=== PATIENT | female | born 1995 | race Caucasian/White ===

== ENCOUNTER 2016-06-20 14:03 | Emergency (ER) | payer OTHER ==
[2016-06-20] MEDS ORDERED: PREDNISONE 20 MG TABLET PO ONE (14:38)
[2016-06-20 15:25] LABS: APPEARANCE,URINE CLOUDY; BILIRUBIN,URINE NEGATIVE (NEGATIVE); GLUCOSE, URINE NEGATIVE (NEGATIVE); KETONES,URINE NEGATIVE (NEGATIVE); LEUKOCYTE ESTERASE,URINE NEGATIVE (NEGATIVE); NITRITE,URINE NEGATIVE (NEGATIVE); PROTEIN,URINE NEGATIVE (NEGATIVE); URINE SPECIFIC GRAVITY 1.026; UROBILINOGEN,URINE NEGATIVE mg/dL (<2.0)
--- NOTE | 2016-06-20 17:01 | ER Document Report ---
ED General - General Chief Complaint: Back Pain Stated Complaint: BACK PAIN Time seen by provider: 15:00 Mode of Arrival: Ambulatory Information source: Patient Notes: This is a 20-year-old female that presents to the emergency room with acute onset low back pain after bending over picking up a baby. The patient did hear a "pop". She denies any numbness to the lower extremities. She has a lot of pain in the low back region. There is no radicular symptoms. There is no loss of bowel or bladder function. TRAVEL OUTSIDE OF THE [place] IN LAST 30 DAYS: No - HPI Onset: This morning Onset/Duration: Sudden Quality of pain: Dull Severity: Moderate Pain Level: 3 Associated symptoms: denies: Chills, Nonproductive cough, Productive cough, Fever, Shortness of breath Exacerbated by: Denies Relieved by: Denies Similar symptoms previously: No Recently seen / treated by doctor: No - Related Data Allergies/Adverse Reactions: cephalexin [From Keflex] Allergy (Verified 06/20/16 14:56) amoxicillin Adverse Reaction (Verified 06/20/16 14:56) Past Medical History - General Information source: Patient - Social History Smoking Status: Never Smoker Cigarette use (# per day): No Chew tobacco use (# tins/day): No Frequency of alcohol use: None Drug Abuse: None Lives with: Family Family History: Reviewed & Not Pertinent Patient has suicidal ideation: No Patient has homicidal ideation: No - Medical History Medical History: Negative Surgical Hx: Negative - Immunizations Hx Diphtheria, Pertussis, Tetanus Vaccination: Yes Review of Systems - Review of Systems Constitutional: denies: See HPI, Fever EENT: No symptoms reported Cardiovascular: No symptoms reported Respiratory: No symptoms reported Gastrointestinal: No symptoms reported Genitourinary: No symptoms reported Female Genitourinary: No symptoms reported Musculoskeletal: See HPI Skin: No symptoms reported Hematologic/Lymphatic: No symptoms reported Neurological/Psychological: No symptoms reported Physical Exam - Vital signs Vitals: Temp Pulse Resp BP Pulse Ox 98.1 F 95 20 148/65 H 100 06/20/16 17:21 06/20/16 17:21 06/20/16 17:21 06/20/16 17:21 06/20/16 17:21 Notes: Physical exam: GENERAL: 20-year-old female, alert and oriented 3, no acute distress. HEAD: Atraumatic, normocephalic. EYES: Pupils equal round and reactive to light, extraocular movements intact, sclera anicteric, conjunctiva are normal. ENT: TMs normal, nares patent, oropharynx clear without exudates. Moist mucous membranes. NECK: Normal range of motion, supple without lymphadenopathy or JVD. LUNGS: Breath sounds clear to auscultation bilaterally and equal. No wheezes rales or rhonchi. HEART: Regular rate and rhythm without murmurs, rubs or gallops. ABDOMEN: Soft, nontender, normoactive bowel sounds. No guarding, no rebound. No masses appreciated. BACK: Cervical, thoracic and lumbar spine nontender. Patient does have a lot of paraspinal tenderness in the lumbar region. There is no step offs, swelling , skin changes. EXTREMITIES: Normal range of motion, no pitting or edema. No clubbing or cyanosis. NEUROLOGICAL: Cranial nerves II through XII grossly intact. Normal speech, normal gait, motor exam good, reflexes symmetrical, sensory intact. PSYCH: Normal mood, normal affect. SKIN: Warm, Dry, normal turgor, no rashes or lesions noted. Course - Vital Signs Vital signs: Temp Pulse Resp BP Pulse Ox 98.1 F 95 20 148/65 H 100 06/20/16 17:21 06/20/16 17:21 06/20/16 17:21 06/20/16 17:21 06/20/16 17:21 - Laboratory Laboratory results interpreted by me: 06/20/16 14:39 Urine Ascorbic Acid 40 H - Diagnostic Test Radiology reviewed: Image reviewed, Reports reviewed - LS-spine films show no fractures or misalignment Discharge - Discharge Clinical Impression: acute lumbar strain Condition: Stable Disposition: HOME, SELF-CARE Instructions: Low Back Pain ([facility]), Muscle Strain ([facility]), Oral Narcotic Medication ([facility]), Warm Packs ([facility]) Additional Instructions: Recommendations: Avoid heavy lifting. Take Solu-Medrol as prescribed. Start the steroids tomorrow you were given today's dose in the ER. Take the Percocet as needed. This is a narcotic: See the narcotic instruction sheet. Take Robaxin as needed. This is a muscle relaxer. Try heat to the lower back area. Follow-up with your primary care doctor Physical therapy can sometimes help with back pain. I left the number for a physical therapist below: [facility] physical therapist [address] [place] [address] There are also certain exercises that can help with low back pain. There is a disc that you can buy over the Internet called "foundation training" by Axel Covington. It shows you maneuvers and exercises you could do to strengthen you lower back. Prescriptions: Methocarbamol [Robaxin 500 mg Tablet] 500 mg PO BID #20 tablet Methylprednisolone [Medrol 4 mg Dosepack 21 Tab/Pack] 4 mg PO ASDIR PRN #21 tab.ds.pk PRN Reason: Oxycodone HCl/Acetaminophen [Percocet 5-325 mg Tablet] 1 - 2 tab PO ASDIR PRN # 25 tablet PRN Reason:
[2016-06-20 17:22] VITALS: BP 148/65
== END 2016-06-20 17:22 | disposition home or self-care (01) ==
LOC: ER 14:03
DX: S39.012A Strain of muscle, fascia and tendon of lower back, initial encounter (principal); X50.0XXA Overexertion from strenuous movement or load, initial encounter; Z88.0 Allergy status to penicillin
CPT/HCPCS: 99283; 81025; 81001; 72110; J7512

== ENCOUNTER → 2017-07-26 | Outpatient (CLI) | payer OTHER ==
[2017-07-28 08:43] LABS: FOLLICLE STIMULATING HORMONE 5.7 mIU/mL (.); LUTEINIZING HORMONE 15.8 mIU/mL (.)
== END ==
LOC: OD 08:10
PROVIDERS: ATTEND Obstetrics & Gynecology
DX: N92.6 Irregular menstruation, unspecified (principal); N97.0 Female infertility associated with anovulation; E66.9 Obesity, unspecified
CPT/HCPCS: 36415; 83001; 83002; 84146; 84443

== ENCOUNTER → 2017-08-14 | Outpatient (CLI) | payer OTHER ==
--- NOTE | 2017-08-14 09:40 | WOMENS IMAGING REPORT ---
EXAM DESCRIPTION: U/S ABDOMEN LIMITED COMPLETED DATE/TIME: 08/14/2017 9:09 am REASON FOR STUDY: NAUSEA R11.0 NAUSEA COMPARISON: None. TECHNIQUE: Dynamic and static grayscale images acquired of the abdomen and recorded on PACS. [facility] and spectral images recorded. LIMITATIONS: Study is limited somewhat due to overlying bowel gas. FINDINGS: PANCREAS: No masses. No peripancreatic edema or fluid collections. LIVER: Echotexture is coarse with increased echogenicity consistent with fatty infiltration. Echogen ic mass is identified measuring 2.4 x 2.3 x 2.4 cm in diameters most consistent with an hemangioma. If further workup is deemed clinically warranted I would recommend CT or MRI. LIVER VASCULATURE: Normal directional flow of the main portal vein and hepatic veins. GALLBLADDER: No stones. Normal wall thickness. No pericholecystic fluid. ULTRASOUND-DETECTED RATLIFF'S SIGN: Negative. INTRAHEPATIC DUCTS AND COMMON DUCT: CBD and intrahepatic ducts normal caliber. No filling defects. INFERIOR VENA CAVA: IVC could not be visualized due to overlying bowel gas. AORTA: Abdominal aorta could not be visualized due to overlying bowel gas. RIGHT KIDNEY: Normal size. Normal echogenicity. No solid or suspicious masses. No hydronephrosis. No calcifications. PERITONEAL AND RIGHT PLEURAL SPACE: No ascites or effusions. OTHER: No other significant finding. IMPRESSION: FATTY INFILTRATION OF THE LIVER. Echogenic mass in the liver most consistent with an he mangioma. If further workup is deemed clinically warranted I would recommend CT or MRI. No other si gnificant intra-abdominal abnormalities were identified. Other findings as noted above TECHNICAL DOCUMENTATION: JOB ID: [id number] [employer]- All Rights Reserved Reading location - IP/workstation name: [facility]
== END ==
LOC: WI 07:42
PROVIDERS: ATTEND Obstetrics & Gynecology
DX: R11.0 Nausea (principal); L29.9 Pruritus, unspecified; D18.03 Hemangioma of intra-abdominal structures; K76.0 Fatty (change of) liver, not elsewhere classified
CPT/HCPCS: 76705

== ENCOUNTER → 2017-09-09 | Outpatient (CLI) | payer OTHER ==
[2017-09-09 15:40] LABS: ABSOLUTE BASOPHILS # (AUTO) 0.1 10^3/uL (0.0-0.2); ABSOLUTE EOSINOPHILS # (AUTO) 0.1 10^3/uL (0.0-0.6); ABSOLUTE LYMPHOCYTES (AUTO) 2.2 10^3/uL (0.5-4.7); ABSOLUTE MONOCYTES (AUTO) 0.6 10^3/uL (0.1-1.4); ABSOLUTE NEUT (AUTO) 6.4 10^3/uL (1.7-8.2); BASOPHILS % (AUTO) 0.6 % (0-2); EOSINOPHILS % (AUTO) 0.6 % (0-6); HEMATOCRIT 40.7 % (36.0-47.0); HEMOGLOBIN 13.5 g/dL (12.0-15.5); LYMPHOCYTES % (AUTO) 23.8 % (13-45); MEAN CORPUSCULAR HEMOGLOBIN 24.8 pg (27.0-33.4); MEAN CORPUSCULAR HGB CONC 33.3 g/dL (32.0-36.0); MEAN CORPUSCULAR VOLUME 75 fl (80-97); MONOCYTES % (AUTO) 6.1 % (3-13); PLATELET COUNT 374 10^3/uL (150-450); RED BLOOD COUNT 5.46 10^6/uL (3.72-5.28); RED CELL DISTRIBUTION WIDTH 15.3 % (11.5-14.0); SEGMENTED NEUTROPHILS % (AUTO) 68.9 % (42-78); TOTAL CELLS COUNTED % (AUTO) 100 %; WHITE BLOOD COUNT 9.3 10^3/uL (4.0-10.5)
[2017-09-09 15:45] LABS: ALANINE AMINOTRANSFERASE 20 U/L (9-52); ALBUMIN 4.5 g/dL (3.5-5.0); ALKALINE PHOSPHATASE 86 U/L (38-126); ANION GAP 12 (5-19); ASPARTATE AMINO TRANSFERASE 18 U/L (14-36); BILIRUBIN,DIRECT 0.2 mg/dL (0.0-0.4); BILIRUBIN,TOTAL 0.4 mg/dL (0.2-1.3); BLOOD UREA NITROGEN 9 mg/dL (7-20); CALCIUM 9.9 mg/dL (8.4-10.2); CARBON DIOXIDE 25 mmol/L (22-30); CHLORIDE 103 mmol/L (98-107); GLUCOSE 87 mg/dL (75-110); POTASSIUM 4.3 mmol/L (3.6-5.0); SODIUM 139.7 mmol/L (137-145); TOTAL PROTEIN 7.6 g/dL (6.3-8.2)
== END ==
LOC: OD 14:52
PROVIDERS: ATTEND Physician Assistant Surgical
DX: R10.11 Right upper quadrant pain (principal); R11.0 Nausea; K76.89 Other specified diseases of liver
CPT/HCPCS: 36415; 80053; 85025

== ENCOUNTER → 2017-09-11 | Outpatient (CLI) | payer OTHER ==
--- NOTE | 2017-09-11 20:43 | RADIOLOGY REPORT (SQ) ---
EXAM DESCRIPTION: MRI ABDOMEN COMBO COMPLETED DATE/TIME: 09/11/2017 7:58 pm REASON FOR STUDY: Other specified diseases of liver K76.89 OTHER SPECIFIED DISEASES OF LIVER COMPARISON: Ultrasound 08/14/2017. TECHNIQUE: T1, T1 in and out of phase, T2 fat sat, T1 post gadolinium sequences with attention to th e liver. CONTRAST TYPE AND DOSE: 20 mL Prohance. RENAL FUNCTION: None required. The patient is less than 50 years old. LIMITATIONS: None. FINDINGS: LIVER: There are hyperintense T2 small liver lesions. This includes the right lobe lesion noted on ultrasound which measures 1.6 x 2.3 cm. Similar 9 mm right lobe lesion and 1.2 cm ovoid le nery near the pearl. Each of these lesions shows nodular irregular peripheral enhancement with incom plete fill-in over the course of the study. The appearance is suggestive of hemangiomas. SPLEEN: Normal size. No focal lesions. PANCREAS: No masses. No adjacent inflammation or peripancreatic fluid collections. Pancreatic duct no t dilated. GALLBLADDER: Contracted. ADRENAL GLANDS: No significant masses or asymmetry. RIGHT KIDNEY AND URETER: No masses. No hydronephrosis. LEFT KIDNEY AND URETER: No masses. No hydronephrosis. AORTA AND VESSELS: No aneurysm. No dissection. Renal arteries, SMA, celiac without stenosis. RETROPERITONEUM: No retroperitoneal adenopathy, hemorrhage or masses. BOWEL: No visualized masses. No inflammation. No significant dilatation. ABDOMINAL WALL AND PERITONEUM: No hernias. No free fluid. BONES: No acute or significant findings. OTHER: No other significant finding. IMPRESSION: 1. 3 liver hemangiomas, largest correlating with the recently ultrasound detected lesio n. No suspicious lesion. TECHNICAL DOCUMENTATION: JOB ID: [id number] [employer]- All Rights Reserved Reading location - IP/workstation name: [email or web address]
== END ==
LOC: RAD 17:52
PROVIDERS: ATTEND Internal Medicine Gastroenterology
DX: K76.89 Other specified diseases of liver (principal)
CPT/HCPCS: 74183

== ENCOUNTER 2017-11-15 14:06 | Inpatient (IN) | payer OTHER ==
[2017-11-15] MEDS ORDERED: CLINDAMYCIN 600 MG/D5W RTU 600 MG/50 ML RTUPB IV ONE (14:38)
[2017-11-15] MEDS ORDERED: NORMAL SALINE 1000 ML 1,000 ML IV ONE (14:38)
--- NOTE | 2017-11-15 14:39 | ER Document Report ---
ED Medical Screen (RME) - General Chief Complaint: Sore Throat Stated Complaint: SORE THROAT Time Seen by Provider: 11/15/17 14:34 Mode of Arrival: Ambulatory Information source: Patient Notes: 22-year-old female presents with 3 day duration of tonsillar pain change of voice difficulty swallowing. Patient sent in by urgent care for concerns for BEEF BREAKER versus Adis's I have greeted and performed a rapid initial assessment of this patient. A comprehensive ED assessment and evaluation of the patient, analysis of test results and completion of the medical decision making process will be conducted by additional ED providers. PHYSICAL EXAMINATION: GENERAL: Well-appearing, well-nourished and in no acute distress. HEAD: Atraumatic, normocephalic. EYES: Pupils equal round extraocular movements intact, conjunctiva are normal. ENT: Bilateral tonsillar enlargement mild edema around the neck but there is no protrusion of the tongue NECK: Normal range of motion LUNGS: No respiratory distress Musculoskeletal: Normal range of motion NEUROLOGICAL: Normal speech, normal gait. PSYCH: Normal mood, normal affect. SKIN: Warm, Dry, normal turgor, no rashes or lesions noted. TRAVEL OUTSIDE OF THE [place] IN LAST 30 DAYS: No - Related Data Allergies/Adverse Reactions: cephalexin [From Keflex] Allergy (Verified 11/15/17 14:07) amoxicillin Adverse Reaction (Verified 06/20/16 14:56) Past Medical History - Immunizations Hx Diphtheria, Pertussis, Tetanus Vaccination: Yes Physical Exam - Vital signs Vitals: Temp Pulse Resp BP Pulse Ox 99.4 F 107 H 24 H 108/74 100 11/15/17 14:19 11/15/17 14:19 11/15/17 14:19 11/15/17 14:19 11/15/17 14:19 Course - Vital Signs Vital signs: Temp Pulse Resp BP Pulse Ox 99.4 F 107 H 24 H 108/74 100 11/15/17 14:19 11/15/17 14:19 11/15/17 14:19 11/15/17 14:19 11/15/17 14:19 Doctor's Discharge - Discharge Referrals: ROSELYN FLETCHER PA-C [Primary Care Provider] - Follow up as needed
[2017-11-15 15:44] LABS: ABSOLUTE BASOPHILS # (AUTO) 0.1 10^3/uL (0.0-0.2); ABSOLUTE LYMPHOCYTES (AUTO) 1.7 10^3/uL (0.5-4.7); ABSOLUTE MONOCYTES (AUTO) 0.6 10^3/uL (0.1-1.4); ABSOLUTE NEUT (AUTO) 13.6 10^3/uL (1.7-8.2); BASOPHILS % (AUTO) 0.5 % (0-2); EOSINOPHILS % (AUTO) 0.2 % (0-6); HEMATOCRIT 40.5 % (36.0-47.0); HEMOGLOBIN 13.4 g/dL (12.0-15.5); LYMPHOCYTES % (AUTO) 10.7 % (13-45); MEAN CORPUSCULAR HEMOGLOBIN 24.8 pg (27.0-33.4); MEAN CORPUSCULAR HGB CONC 33.1 g/dL (32.0-36.0); MEAN CORPUSCULAR VOLUME 75 fl (80-97); MONOCYTES % (AUTO) 3.6 % (3-13); RED CELL DISTRIBUTION WIDTH 14.9 % (11.5-14.0); TOTAL CELLS COUNTED % (AUTO) 100 %
[2017-11-15 16:01] LABS: PLATELET COUNT 389 10^3/uL (150-450)
--- NOTE | 2017-11-15 16:25 | RADIOLOGY REPORT (SQ) ---
EXAM DESCRIPTION: CT SOFT TISSUE NECK WITH COMPLETED DATE/TIME: 11/15/2017 4:11 pm REASON FOR STUDY: tonsillar edema bilateral with dysphonia COMPARISON: None. TECHNIQUE: Post IV contrasted scanning from skull base through lung apices with review of bone, soft tissue and lung windows. Reconstructed coronal and sagittal MPR images reviewed. All images stored on PACS. All CT scanners at this facility use dose modulation, iterative reconstruction, and/or weight based d osing when appropriate to reduce radiation dose to as low as reasonably achievable (ALARA). [facility]: Dose Right [facility]: CareDose [facility]: Dose Right [facility]: Teradose 4D [facility]: [employer] CONTRAST TYPE AND DOSE: contrast/concentration: Isovue 370.00 mg/ml; Total Contrast Delivered: 75.0 ml; Total Saline Delivered: 55.0 ml RENAL FUNCTION: None required. The patient is less than 50 years old. RADIATION DOSE: CT Rad equipment meets quality standard of care and radiation dose reduction techniq ues were employed. CTDIvol: 17.3 mGy. DLP: 502 mGy-cm. . LIMITATIONS: None. FINDINGS: SKULL BASE: Intact. MAJOR SALIVARY GLANDS: No solid or cystic masses. No inflammatory changes. LYMPHADENOPATHY: No adenopathy. MUCOSAL MASSES OR ASYMMETRY: Marked hypertrophy of the tonsillar pillars with narrowing of the hypoph arynx. No abscess identified. LARYNX/CORDS: No abnormal findings. VASCULAR STRUCTURES: The major vessels are patent. LUNG APICES: Clear. BONES: Intact. THYROID: Normal size. No masses. PARANASAL SINUSES: Clear. OTHER: No other significant finding. IMPRESSION: Marked inflammation of the palatine tonsils with significant narrowing of the hypopharyn x. No abscess identified. TECHNICAL DOCUMENTATION: JOB ID: [id number] Quality ID # [id number]: Final reports with documentation of one or more dose reduction techniques (e.g., Au tomated exposure control, adjustment of the mA and/or kV according to patient size, use of iterative reconstruction technique) 2010 [employer]- All Rights Reserved Reading location - IP/workstation name: INDUSTRIAL MAINTENANCE [email or web address]
[2017-11-15] MEDS ORDERED: ONDANSETRON HCL INJ/PF 4 MG/2 ML SDV IV PRN (16:50)
[2017-11-15] MEDS ORDERED: ACETAMINOPHEN 650 MG SUPP.RECT PR PRN (16:50)
--- NOTE | 2017-11-15 16:51 | ER Document Report ---
ED General - General Chief Complaint: Sore Throat Stated Complaint: SORE THROAT Time Seen by Provider: 11/15/17 14:34 Mode of Arrival: Ambulatory Information source: Patient Notes: 22-year-old female presents with complaints of 3 4 day duration of sore throat with voice change. Patient went to urgent care concerns for peritonsillar abscess noted patient notes fevers difficulty swallowing denies any difficulty breathing patient sent in for evaluation Patient given 10 mg of Decadron by urgent care TRAVEL OUTSIDE OF THE [place] IN LAST 30 DAYS: No - HPI Onset: Last week Onset/Duration: Persistent, Worse Quality of pain: Sharp Severity: Moderate Pain Level: 3 Associated symptoms: Fever, Sore throat, Other Exacerbated by: Food, Other Relieved by: Other - Decadron has improved patient's symptoms Similar symptoms previously: No Recently seen / treated by doctor: Yes - Related Data Allergies/Adverse Reactions: cephalexin [From Keflex] Allergy (Verified 11/15/17 14:41) amoxicillin Adverse Reaction (Verified 11/15/17 14:41) Past Medical History - General Information source: Patient - Social History Smoking Status: Never Smoker Cigarette use (# per day): No Chew tobacco use (# tins/day): No Smoking Education Provided: No Frequency of alcohol use: Occasional Drug Abuse: None Family History: Reviewed & Not Pertinent Patient has suicidal ideation: No Patient has homicidal ideation: No Renal/ Medical History: Denies: Hx Peritoneal Dialysis Past Surgical History: Reports: Hx Oral Surgery - Immunizations Hx Diphtheria, Pertussis, Tetanus Vaccination: Yes Review of Systems - Review of Systems Notes: REVIEW OF SYSTEMS: CONSTITUTIONAL : Admits to fevers EENT: Admits to sore throat difficulty swallowing CARDIOVASCULAR: Denies chest pain. Denies palpitations or racing or irregular heart beat. Denies ankle edema. RESPIRATORY: Denies cough, cold, or chest congestion. Denies shortness of breath, difficulty breathing, or wheezing. GASTROINTESTINAL: Denies abdominal pain or distention. Denies nausea, vomiting , or diarrhea. Denies blood in vomitus, stools, or per rectum. Denies black, tarry stools. Denies constipation. GENITOURINARY: Denies difficulty urinating, painful urination, burning, frequency, blood in urine, or discharge. FEMALE GENITOURINARY: Denies vaginal bleeding, heavy or abnormal periods, irregular periods. Denies vaginal discharge or odor. MUSCULOSKELETAL: Denies back or neck pain or stiffness. Denies joint pain or swelling. SKIN: Denies rash, lesions or sores. HEMATOLOGIC : Denies easy bruising or bleeding. LYMPHATIC: Denies swollen, enlarged glands. NEUROLOGICAL: Denies confusion or altered mental status. Denies passing out or loss of consciousness. Denies dizziness or lightheadedness. Denies headache. Denies weakness or paralysis or loss of use of either side. Denies problems with gait or speech. Denies sensory loss, numbness, or tingling. Denies seizures. PSYCHIATRIC: Denies anxiety or stress. Denies depression, suicidal ideation, or homicidal ideation. ALL OTHER SYSTEMS REVIEWED AND NEGATIVE. PHYSICAL EXAMINATION: GENERAL: Well-appearing, well-nourished and in no acute distress. HEAD: Atraumatic, normocephalic. EYES: Pupils equal round and reactive to light, extraocular movements intact, conjunctiva are normal. ENT: Bilateral tonsillar enlargement +3 uvula is midline, no stridor noted patient is protecting her airway NECK: Bilateral anterior cervical adenopathy LUNGS: Breath sounds clear to auscultation bilaterally and equal. No wheezes rales or rhonchi. HEART: Tachycardic ABDOMEN: Soft, nontender, nondistended abdomen. No guarding, no rebound. No masses appreciated. Female : deferred Musculoskeletal: Normal range of motion, no pitting or edema. No cyanosis. NEUROLOGICAL: Cranial nerves grossly intact. Normal speech, normal gait. Normal sensory, motor exams PSYCH: Normal mood, normal affect. SKIN: Warm, Dry, normal turgor, no rashes or lesions noted. Dictation was performed using [employer] voice recognition software Physical Exam - Vital signs Vitals: Temp Pulse Resp BP Pulse Ox 99.4 F 107 H 24 H 108/74 100 11/15/17 14:19 11/15/17 14:19 11/15/17 14:19 11/15/17 14:19 11/15/17 14:19 Course - Re-evaluation Re-evalutation: 11/15/17 19:45 CT was performed and is concerning for edema tonsillar enlargement which may lead to difficulty swallowing and breathing, I did speak with Dr. Wise who was quarry supervisor dimension stone, he does not believe any surgical intervention is necessary and I agree , I will start clindamycin rapid strep and mono were negative, I will admit to the hospitalist service for IV hydration continued antibiotics and steroids - Vital Signs Vital signs: Temp Pulse Resp BP Pulse Ox 98 F 107 H 23 H 130/79 H 97 11/15/17 17:55 11/15/17 14:19 11/15/17 19:01 11/15/17 19:01 11/15/17 19:01 - Laboratory Result Diagrams: 11/15/17 15:09 11/15/17 16:40 Laboratory results interpreted by me: 11/15/17 11/15/17 15:09 16:40 WBC 16.0 H RBC 5.40 H MCV 75 L MCH 24.8 L RDW 14.9 H Seg Neutrophils % 85.0 H Lymphocytes % 10.7 L Absolute Neutrophils 13.6 H Carbon Dioxide 20 L Direct Bilirubin 0.5 H - Diagnostic Test Radiology reviewed: Image reviewed - CT soft tissue neck with IV contrast notes tonsillar enlargement, Reports reviewed Discharge - Discharge Clinical Impression: Acute bacterial tonsillitis Sepsis Qualifiers: Sepsis type: sepsis due to unspecified organism Qualified Code(s): A41.9 - Sepsis, unspecified organism Condition: Stable Disposition: ADMITTED INPATIENT Admitting Provider: Hospitalist Unit Admitted: Telemetry
[2017-11-15] MEDS ORDERED: DEXTROSE 5%-NORMAL SALINE 1,000 ML IV PRN (16:54)
[2017-11-15] MEDS ORDERED: NORMAL SALINE 1000 ML 1,000 ML IV PRN (17:22)
[2017-11-15 17:25] LABS: ALANINE AMINOTRANSFERASE 16 U/L (9-52); ALBUMIN 4.2 g/dL (3.5-5.0); ALKALINE PHOSPHATASE 99 U/L (38-126); ANION GAP 17 (5-19); ASPARTATE AMINO TRANSFERASE 15 U/L (14-36); BILIRUBIN,DIRECT 0.5 mg/dL (0.0-0.4); BILIRUBIN,TOTAL 0.5 mg/dL (0.2-1.3); BLOOD UREA NITROGEN 12 mg/dL (7-20); CALCIUM 9.4 mg/dL (8.4-10.2); CARBON DIOXIDE 20 mmol/L (22-30); CHLORIDE 104 mmol/L (98-107); GLUCOSE 101 mg/dL (75-110); POTASSIUM 4.6 mmol/L (3.6-5.0); SODIUM 140.7 mmol/L (137-145); TOTAL PROTEIN 7.8 g/dL (6.3-8.2)
--- NOTE | 2017-11-15 17:39 | PDOC H&P ---
History of Present Illness Admission Date/PCP: 11/15/17 ROSELYN FLETCHER PA-C Patient complains of: Sore throat, pain on swallowing, difficulty breathing History of Present Illness: DARLINE THOMPSON is a 22 year old female with past medical history of PCOS GERD Obesity She presented to the ER on 11/15/17 complaining of sore throat and odynophagia with difficulty breathing. CT of neck soft tissues showed marked inflammation of the palatine tonsils with significant narrowing of the hypopharynx. No abscess seen. She was given IV Decadron and Clindamycin and referred for admission per ENT recommendations. Feels better now. Social History Information Source: Patient Smoking Status: Never Smoker Frequency of Alcohol Use: Occasional Hx Recreational Drug Use: No - Advance Directive Resuscitation Status: Full Code Family History Family History: DM, Hypertension, Malignancy Parental Family History Reviewed: Yes Children Family History Reviewed: Yes Sibling(s) Family History Reviewed.: Yes Medication/Allergy Home Medications: Metformin HCl 500 mg PO DAILY 11/15/17 Omeprazole 20 mg PO DAILY 11/15/17 Vit/Iron Fum/Folic AC [ Tablet] 1 tab PO DAILY 11/15/17 Allergies/Adverse Reactions: cephalexin [From Keflex] Allergy (Verified 11/15/17 14:41) amoxicillin Adverse Reaction (Verified 11/15/17 14:41) Review of Systems Constitutional: PRESENT: fever(s) Eyes: ABSENT: visual disturbances Ears: ABSENT: hearing changes Nose, Mouth, and Throat: PRESENT: sore throat Cardiovascular: ABSENT: chest pain Respiratory: PRESENT: cough. ABSENT: hemoptysis Gastrointestinal: PRESENT: diarrhea, heartburn. ABSENT: vomiting Genitourinary: ABSENT: dysuria Musculoskeletal: ABSENT: joint swelling Integumentary: ABSENT: rash Neurological: ABSENT: focal weakness Psychiatric: ABSENT: hallucinations Endocrine: ABSENT: heat intolerance Hematologic/Lymphatic: ABSENT: easy bleeding Allergic/Immunologic: ABSENT: seasonal rhinorrhea Physical Exam Vital Signs: Temp Pulse Resp BP Pulse Ox 99.4 F 107 H 24 H 108/74 100 11/15/17 14:19 11/15/17 14:19 11/15/17 14:19 11/15/17 14:19 11/15/17 14:19 Intake & Output 11/14/17 11/15/17 11/16/17 06:59 06:59 06:59 Weight 136.4 kg General appearance: PRESENT: no acute distress, obese Head exam: PRESENT: normocephalic Eye exam: PRESENT: PERRLA. ABSENT: scleral icterus Ear exam: PRESENT: normal external ear exam Mouth exam: PRESENT: moist Throat exam: PRESENT: other - fullness in the tonsillar area with tender submandibular lymphadenopathy Neck exam: ABSENT: tracheal deviation Respiratory exam: PRESENT: clear to auscultation ciarra, symmetrical, unlabored Cardiovascular exam: PRESENT: RRR. ABSENT: systolic murmur GI/Abdominal exam: PRESENT: normal bowel sounds, soft. ABSENT: tenderness Rectal exam: PRESENT: deferred Extremities exam: ABSENT: pedal edema Musculoskeletal exam: PRESENT: normal inspection Neurological exam: PRESENT: alert, awake, oriented to person, oriented to place , oriented to time, oriented to situation Psychiatric exam: PRESENT: appropriate affect Skin exam: ABSENT: jaundice, rash Results Laboratory Results: 11/15/17 15:09 11/15/17 11/15/17 11/15/17 15:09 15:09 15:09 WBC 16.0 H RBC 5.40 H Hgb 13.4 Hct 40.5 MCV 75 L MCH 24.8 L MCHC 33.1 RDW 14.9 H Plt Count 389 Seg Neutrophils % 85.0 H Lymphocytes % 10.7 L Monocytes % 3.6 Eosinophils % 0.2 Basophils % 0.5 Absolute Neutrophils 13.6 H Absolute Lymphocytes 1.7 Absolute Monocytes 0.6 Absolute Eosinophils 0.0 Absolute Basophils 0.1 Sodium Cancelled Potassium Cancelled Chloride Cancelled Carbon Dioxide Cancelled Anion Gap Cancelled BUN Cancelled Creatinine Cancelled Est GFR ( Amer) Cancelled Est GFR (Non-Af Amer) Cancelled Glucose Cancelled Calcium Cancelled Total Bilirubin Cancelled AST Cancelled ALT Cancelled Alkaline Phosphatase Cancelled Total Protein Cancelled Albumin Cancelled Serum HCG, Qual Cancelled Impressions: Soft Tissue Neck CT 11/15/17 14:37 IMPRESSION: Marked inflammation of the palatine tonsils with significant narrowing of the hypopharynx. No abscess identified. Status: Imported from PACS Assessment & Plan - Diagnosis (1) Acute bacterial tonsillitis Is this a current diagnosis for this admission?: Yes Plan: Clindamycin, steroids, close monitoring, ENT consult. (2) PCOS (polycystic ovarian syndrome) Is this a current diagnosis for this admission?: Yes Plan: Hold Metformin (3) Obesity Is this a current diagnosis for this admission?: Yes (4) GERD (gastroesophageal reflux disease) Qualifiers: Esophagitis presence: esophagitis presence not specified Qualified Code(s) : K21.9 - Gastro-esophageal reflux disease without esophagitis Is this a current diagnosis for this admission?: Yes Plan: IV Pepcid - Time Time Spent: 50 to 70 Minutes - Inpatient Certification Medical Necessity: Need Close Monitoring Due to Risk of Patient Decompensation, Need for IV Antibiotics, Risk of Complication if Not Cared For in Hospital, Risk of Diagnosis Which Will Require Inpatient Eval/Care/Monitoring
[2017-11-15] MEDS ORDERED: CLINDAMYCIN 300 MG/D5W RTU 300 MG/50 ML RTUPB IV SCH ×2 (18:00→22:00)
[2017-11-15] MEDS: DEXAMETHASONE SOD PHOS INJ 10 MG/1 ML VIAL IV SCH (18:51)
[2017-11-15] MEDS: FAMOTIDINE INJ/PF 20 MG/2 ML SDV IV SCH (18:51)
[2017-11-15] MEDS ORDERED: CLINDAMYCIN 300 MG/D5W RTU 300 MG/50 ML RTUPB IV ONE ×2 (21:13→23:40)
[2017-11-15] MEDS: CLINDAMYCIN 300 MG/D5W RTU 300 MG/50 ML RTUPB IV SCH (21:25)
[2017-11-16] MEDS: DEXAMETHASONE SOD PHOS INJ 10 MG/1 ML VIAL IV SCH ×2 (01:22→10:00)
[2017-11-16] MEDS: CLINDAMYCIN 300 MG/D5W RTU 300 MG/50 ML RTUPB IV SCH ×2 (02:47→10:00)
[2017-11-16] MEDS: FAMOTIDINE INJ/PF 20 MG/2 ML SDV IV SCH (05:09)
[2017-11-16 06:24] LABS: ABSOLUTE MONOCYTES (AUTO) 0.1 10^3/uL (0.1-1.4); ABSOLUTE NEUT (AUTO) 11.7 10^3/uL (1.7-8.2); BASOPHILS % (AUTO) 0.4 % (0-2); HEMATOCRIT 35.4 % (36.0-47.0); HEMOGLOBIN 11.9 g/dL (12.0-15.5); MEAN CORPUSCULAR HEMOGLOBIN 25.1 pg (27.0-33.4); MEAN CORPUSCULAR HGB CONC 33.5 g/dL (32.0-36.0); MEAN CORPUSCULAR VOLUME 75 fl (80-97); PLATELET COUNT 399 10^3/uL (150-450); RED BLOOD COUNT 4.73 10^6/uL (3.72-5.28); SEGMENTED NEUTROPHILS % (AUTO) 90.6 % (42-78); TOTAL CELLS COUNTED % (AUTO) 100 %; WHITE BLOOD COUNT 12.9 10^3/uL (4.0-10.5)
[2017-11-16 06:55] LABS: ANION GAP 12 (5-19); BLOOD UREA NITROGEN 10 mg/dL (7-20); CALCIUM 9.4 mg/dL (8.4-10.2); CARBON DIOXIDE 22 mmol/L (22-30); CHLORIDE 107 mmol/L (98-107); GLUCOSE 124 mg/dL (75-110); PHOSPHORUS 3.6 mg/dL (2.5-4.5); POTASSIUM 4.6 mmol/L (3.6-5.0); SODIUM 141.1 mmol/L (137-145)
[2017-11-16] MEDS ORDERED: ACETAMINOPHEN 325 MG TABLET ONE (07:22)
[2017-11-16] MEDS ORDERED: ACETAMINOPHEN 325 MG TABLET PO PRN (07:32)
[2017-11-16 08:15] VITALS: BP 125/70
--- NOTE | 2017-11-16 09:50 | PDOC DISCHARGE SUMMARY ---
General - Admit/Disc Date/PCP Admission Date/Primary Care Provider: 11/15/17 16:51 ROSELYN FLETCHER PA-C Discharge Date: 11/16/17 - Discharge Diagnosis (1) Acute bacterial tonsillitis Is this a current diagnosis for this admission?: Yes (2) PCOS (polycystic ovarian syndrome) Is this a current diagnosis for this admission?: Yes (3) Obesity Is this a current diagnosis for this admission?: Yes (4) GERD (gastroesophageal reflux disease) Is this a current diagnosis for this admission?: Yes - Additional Information Resuscitation Status: Full Code Discharge Diet: As Tolerated Prescriptions: Clindamycin HCl [Cleocin 150 mg Capsule] 300 mg PO Q8 9 Days #27 capsule Lactobacillus Acidophilus [Bacid 250 mg Tablet] 500 mg PO BID 15 Days #30 tab Prednisone [Deltasone 20 mg Tablet] 40 mg PO DAILY 5 Days #5 tablet Home Medications: Metformin HCl 500 mg PO DAILY 11/15/17 Omeprazole 20 mg PO DAILY 11/15/17 Vit/Iron Fum/Folic AC [ Tablet] 1 tab PO DAILY 11/15/17 Acetaminophen [Tylenol 325 mg Tablet] 650 mg PO Q6HP PRN tablet 11/16/17 Clindamycin HCl [Cleocin 150 mg Capsule] 300 mg PO Q8 9 Days #27 capsule Lactobacillus Acidophilus [Bacid 250 mg Tablet] 500 mg PO BID 15 Days #30 tab Prednisone [Deltasone 20 mg Tablet] 40 mg PO DAILY 5 Days #5 tablet 11/16/17 History of Present Illness History of Present Illness: DARLINE THOMPSON is a 22 year old female with past medical history of PCOS GERD Obesity She presented to the ER on 11/15/17 complaining of sore throat and odynophagia with difficulty breathing. CT of neck soft tissues showed marked inflammation of the palatine tonsils with significant narrowing of the hypopharynx. No abscess seen. She was given IV Decadron and Clindamycin and referred for admission per ENT recommendations. She feels much better, swelling and pain much improved. Was able to eat breakfast. Hospital Course Hospital Course: above. Stable for discahrge home. Follow up PCP in 2 days Physical Exam Vital Signs: Temp Pulse Resp BP Pulse Ox 97.4 F 83 16 125/70 97 11/16/17 07:18 11/16/17 07:18 11/16/17 07:18 11/16/17 07:18 11/16/17 07:18 Intake & Output 11/15/17 11/16/17 11/17/17 06:59 06:59 06:59 Intake Total 1203 Balance 1203 Weight 137.5 kg General appearance: PRESENT: no acute distress, obese Respiratory exam: PRESENT: symmetrical, unlabored Results Laboratory Results: 11/16/17 05:29 11/16/17 05:29 11/16/17 11/16/17 11/16/17 05:29 05:29 05:29 WBC 12.9 H RBC 4.73 Hgb 11.9 L Hct 35.4 L MCV 75 L MCH 25.1 L MCHC 33.5 RDW 15.0 H Plt Count 399 Seg Neutrophils % 90.6 H Lymphocytes % 8.0 L Monocytes % 1.0 L Eosinophils % 0.0 Basophils % 0.4 Absolute Neutrophils 11.7 H Absolute Lymphocytes 1.0 Absolute Monocytes 0.1 Absolute Eosinophils 0.0 Absolute Basophils 0.0 Sodium 141.1 Potassium 4.6 Chloride 107 Carbon Dioxide 22 Anion Gap 12 BUN 10 Creatinine 0.49 L Est GFR ( Amer) > 60 Est GFR (Non-Af Amer) > 60 Glucose 124 H Calcium 9.4 Phosphorus 3.6 Magnesium 2.3 TSH 0.55 Impressions: Soft Tissue Neck CT 11/15/17 14:37 IMPRESSION: Marked inflammation of the palatine tonsils with significant narrowing of the hypopharynx. No abscess identified. Qualifiers - * PATIENT BEING DISCHARGED WITH ANY OF THE FOLLOWING DIAGNOSIS: No Plan Time Spent: Less than 30 Minutes
[2017-11-16] MEDS ORDERED: LACTOBACILLUS ACIDOPHILUS 250 MG TAB PO SCH (10:00)
[2017-11-16] MEDS ORDERED: PREDNISONE 20 MG TABLET PO SCH (10:00)
[2017-11-16] MEDS ORDERED: CLINDAMYCIN HCL 150 MG CAPSULE PO SCH (14:00)
== END 2017-11-16 11:52 | disposition home or self-care (01) | DRG 153 ==
LOC: ER 14:06 → EH 16:51 → 3W 20:04
PROVIDERS: ADMIT Internal Medicine; ATTEND Internal Medicine
DX: J03.90 Acute tonsillitis, unspecified (principal); Z68.43 Body mass index [BMI] 50.0-59.9, adult; E28.2 Polycystic ovarian syndrome; E66.9 Obesity, unspecified; K21.9 Gastro-esophageal reflux disease without esophagitis; Z79.899 Other long term (current) drug therapy; Z88.1 Allergy status to other antibiotic agents; Z83.3 Family history of diabetes mellitus; Z80.9 Family history of malignant neoplasm, unspecified; Z82.49 Family history of ischemic heart disease and other diseases of the circulatory system
CPT/HCPCS: 36415; 70491; 80048; 80053; 83036; 83735; 84100; 84443; 84703; 85025; 86308; 87040; 87070; 87880; 96365; 99284; J1100; J3490; J7030; S0028